=== PATIENT | male | born 2000 | race Caucasian/White ===

== ENCOUNTER 2024-01-22 13:44 | Emergency (ER) | payer OTHER ==
[~2024-01-22] VITALS: Ht 193 cm; Wt 104.3 kg
[2024-01-22] MEDS ORDERED: KETOROLAC TROMETHAMINE 15 MG/ML VIAL ONE (14:19)
[2024-01-22] MEDS ORDERED: diphenhydrAMINE HCL 50 MG/ML VIAL ONE (14:19)
[2024-01-22] MEDS ORDERED: FAMOTIDINE/PF INJ 20 MG/2 ML VIAL IV ONE (14:20)
[2024-01-22] MEDS ORDERED: METOCLOPRAMIDE HCL 10 MG/2 ML VIAL ONE (14:20)
[2024-01-22] MEDS ORDERED: ONDANSETRON HCL/PF 4 MG/2 ML VIAL ONE (14:23)
[2024-01-22] MEDS ORDERED: MORPHINE SULFATE INJ 4 MG/ML DISP.SYRIN ONE (14:23)
[2024-01-22] MEDS ORDERED: KETOROLAC TROMETHAMINE INJ 30 MG/ML VIAL ONE (14:23)
[2024-01-22] MEDS: MORPHINE SULFATE INJ 2 MG/ML DISP.SYRIN IV ONE (14:24)
[2024-01-22] MEDS: ONDANSETRON HCL/PF 4 MG/2 ML VIAL IVP ONE (14:24)
[2024-01-22] MEDS: IV NS 0.9% 1,000 ML BAG IV ONE ×2 (14:24→15:38)
[2024-01-22] MEDS: KETOROLAC TROMETHAMINE 15 MG/ML VIAL IV ONE (14:24)
[2024-01-22 14:29] LABS: BASOPHILS % (AUTO) 0.3 % (0.0-2.0); EOSINOPHILS % (AUTO) 0.1 % (0.0-6.0); HEMATOCRIT 44 % (39-51); HEMOGLOBIN 14.8 g/dL (13.5-17.5); LYMPHOCYTES # (AUTO) 1.4 K/uL (0.8-4.8); LYMPHOCYTES % (AUTO) 10.9 % (20.0-44.0); MEAN CORPUSCULAR HEMOGLOBIN 29 PG (26.0-33.0); MEAN CORPUSCULAR HGB CONC 34 g/dl (31.0-36.0); MEAN CORPUSCULAR VOLUME 86 fL (80-96); MONOCYTES # (AUTO) 0.5 K/uL (0.1-1.30); NEUTROPHILS # (AUTO) 10.5 K/uL (1.8-8.9); NEUTROPHILS % (AUTO) 84.7 % (43.0-81.0); PLATELET COUNT (AUTO) 300 K/uL (150-450); RED BLOOD CELL COUNT(AUTO) 5.11 MIL/uL (4.5-6.0); RED CELL DISTRIBUTION WIDTH 13.8 % (11.5-15.0); WHITE BLOOD COUNT (AUTO) 12.4 K/uL (4.3-11.0)
[2024-01-22 14:36] LABS: CALCIUM, SERUM 9.5 mg/dL (8.5-10.1); CARBON DIOXIDE 23 mmol/L (21-32); CHLORIDE 102 mmol/L (98-107); CREATININE 0.9 mg/dL (0.6-1.3); GLUCOSE 216 mg/dL (74-106); POTASSIUM 3.6 mmol/L (3.5-5.1); SODIUM SERUM 140 mmol/L (136-145); UREA NITROGEN, BLOOD 13 mg/dL (7-18)
[2024-01-22 14:41] LABS: ALANINE AMINOTRANSFERASE < 6 U/L (12-78); ALBUMIN 4.2 g/dL (3.4-5.0); ALKALINE PHOSPHATASE 56 U/L (46-116); ASPARTATE AMINOTRANSFERASE < 5 U/L (15-37); BILIRUBIN,DIRECT 0.2 mg/dL (0.0-0.2); BILIRUBIN,TOTAL 0.8 mg/dL (0.2-1.0); LIPASE 24 U/L (16-77)
[2024-01-22] MEDS ORDERED: TAMSULOSIN 0.4 MG CAP.SR.24H ONE (15:49)
[2024-01-22] MEDS: TAMSULOSIN 0.4 MG CAP.SR.24H PO ONE (15:50)
[2024-01-22 16:16] LABS: APPEARANCE,URINE SLIGHTLY CLOUDY (CLEAR); BILIRUBIN,URINE 1+ (NEGATIVE); BLOOD, URINE 3+ Ery/uL (NEGATIVE); COLOR,URINE YELLOW (YELLOW); KETONES,URINE 3+ mg/dL (NEGATIVE); LEUKOCYTE ESTERASE ,URINE NEGATIVE (NEGATIVE); NITRITE, URINE NEGATIVE (NEGATIVE); PH,URINE 6.5 (5.0-8.0); PROTEIN,URINE 2+ mg/dl (NEGATIVE); UGLUCOSE NEGATIVE (NEGATIVE)
[2024-01-22 16:45] LABS: RBC,URINE 51-80 /HPF (0-2); WBC,URINE 0-2 /HPF (0-3)
[2024-01-22 16:46] LABS: ADD URINE CULTURE NO; BACTERIA,URINE None seen /HPF (None Seen); SQUAMOUS EPITHELIAL CELL,UR 0-2 /HPF (None Seen)
[2024-01-22] MEDS ORDERED: HYDR-3980 PO (16:53)
[2024-01-22] MEDS ORDERED: IBUP-1957 PO (16:53)
[2024-01-22] MEDS ORDERED: TAMS-12 PO (16:53)
[2024-01-22 16:58] VITALS: BP 125/87; TEMP 98.4; O2SAT 100
== END 2024-01-22 16:59 | disposition home or self-care (01) ==
LOC: ER 13:59
DX: N20.2 Calculus of kidney with calculus of ureter (principal); E10.8 Type 1 diabetes mellitus with unspecified complications; R11.2 Nausea with vomiting, unspecified
CPT/HCPCS: 99285; 74176; 96374; 96361; 96375; 85025; 80048; 83690; 80076; 81001; 36415; J2270; J1885; J2405; J7030; J1200; J2765; J3490